=== PATIENT | female | born 1955 | race African-American/Black ===

== ENCOUNTER 2018-05-25 11:01 | Outpatient (CLI) | payer BC | END 2018-05-25 11:02 | disposition home or self-care (01) | LOC: BICMAMMO 11:01 | PROVIDERS: ATTEND Family Medicine | DX: M85.89 Other specified disorders of bone density and structure, multiple sites (principal) | CPT/HCPCS: 77080 ==

== ENCOUNTER 2018-10-26 08:42 | Observation (INO) | payer BC ==
[2018-10-26] MEDS ORDERED: ISOVUE-370 76%-LOCM 1 ML ONE (09:28)
[2018-10-26] MEDS ORDERED: Iopamidol 370 76% 100 ML VIAL ONE (09:31)
[2018-10-26 09:54] LABS: Band 3 % (5-11); Hemoglobin 13.1 g/dL (12.0-16.0); Lymphocytes 38 % (21-51); MDiff Complete? YES; Macrocytosis SLIGHT = 6-15 cells (100X) (0-5/hpf); Mean Corpuscular HGB CONC 31.7 g/dL (32.0-36.0); Mean Corpuscular Hemoglobin 31.8 pg (27.0-31.0); Mean Platelet Volume 10.7 fL (7.4-10.4); Monocytes 4 % (0-10); Neutrophil 55 % (42-75); Platelet Count 117 thou/uL (130-400); Platelet Morphology Comment Appears Decreased; Polychromasia SLIGHT = 2-3 cells (100X) (0-2/hpf); Red Blood Cell (RBC) Count 4.12 mill/uL (4.20-5.40); White Blood Cell (WBC) Count 4.6 thou/uL (4.8-10.8)
[2018-10-26 10:18] LABS: ALT (SGPT) 39 U/L (8-55); AST (SGOT) 43 U/L (5-34); Acetaminophen Less than 6.0 mcg/mL (10.0-30.0); Albumin 4.2 g/dL (3.4-4.8); Alcohol Less than 10 mg/dL (Less than 10); Alkaline Phosphatase 49 U/L (40-150); Anion Gap 13 mmol/L (10-20); BUN (Urea Nitrogen) 14 mg/dL (9.8-20.1); Bilirubin, Total 0.5 mg/dL (0.2-1.2); Calc. Creatinine Clearance 0 mL/min (70-130); Calcium 9.7 mg/dL (7.8-10.44); Carbon Dioxide 24 mmol/L (23-31); Chloride 105 mmol/L (98-107); Estimated GFR-MDRD 63; Globulin 3.6 g/dL (2.4-3.5); Glucose 96 mg/dL (80-115); Lipase 30 U/L (8-78); Potassium 4.7 mmol/L (3.5-5.1); Protein, Total 7.8 g/dL (6.0-8.3); Salicylate Less than 8.0 mg/dL (15.0-30.0); Sodium 137 mmol/L (136-145)
[2018-10-26 10:48] LABS: Bilirubin Negative (Negative); Blood, Urine Negative (Negative); Clarity CLEAR (Clear); Glucose, Urine (Dipstick) Negative (Negative); Leukocyte Negative (Negative); Nitrite Negative (Negative); Protein, Urine (Dipstick) Trace mg/dL (Neg-Trace); Specific Gravity, Urine 1.018 (1.002-1.036)
[2018-10-26 10:58] LABS: Amphetamine Not Detected (NotDetected); Barbiturates Screen Not Detected (NotDetected); Benzodiazepine Screen Not Detected (NotDetected); Cocaine Metabolite Screen Not Detected (NotDetected); Medtox Control Line Valid? VALID (VALID); Medtox Reader # READER 1; Methadone Not Detected (NotDetected); Methamphetamine Not Detected (NotDetected); Opiate Screen Not Detected (NotDetected); Oxycodone Screen Not Detected (NotDetected); Phencyclidine (PCP) Not Detected (NotDetected); THC/Cannabinoid Screen Not Detected (NotDetected); Tricyclic Screen Not Detected (NotDetected)
--- NOTE | 2018-10-26 11:23 | CT ---
CT ANGIOGRAM HEAD AND NECK WITH CONTRAST CT BRAIN WITHOUT CONTRAST: Date: 10/26/18 HISTORY: Sudden onset altered mental status. COMPARISON: None. FINDINGS: CT BRAIN: There are bilateral basal ganglia calcifications. No acute hemorrhage or infarct. No midline shift or mass effect. There are also calcifications along the cerebellum bilaterally. Calvarium is intact. Paranasal sinuses and mastoids are clear. IMPRESSION: 1. No acute intracranial abnormality. 2. Bilateral basal ganglia calcifications, as well as cerebellar calcifications are symmetric. Findi ngs can be seen with Fahr familial brain calcifications. Within the differential is hypoparathyroidis m, chronic vasculitis, and prior chemotherapy. CT ANGIOGRAM HEAD AND NECK WITH CONTRAST: CT angiogram of head and neck performed after the intravenous administration of contrast. 3D renderin g provided. There is a left-sided SVC. Visualized portion of the transverse aorta and pulmonary trunk are normal. Lung apices are clear. Normal cervical spine alignment. Vertebral arteries are codominant. No stenosis, thrombosis, nor aneurysm formation. Both carotid artery origins are patent. There is a common appearance to the aortic arch with a common origin of the brachiocephalic and left common carotid arteries. Internal carotid arteries are patent . No significant narrowing per NASCET criteria. [place] patent. No stenosis, thrombosis, nor aneurysm formation. IMPRESSION: 1. No significant narrowing of the internal carotid arteries per NASCET criteria. 2. Patent [place] without stenosis, thrombosis, nor aneurysm formation. POS: TPC
[2018-10-26] MEDS ORDERED: Ondansetron PF 4 MG/2 ML Vial IVP PRN ×2 (12:03)
[2018-10-26] MEDS ORDERED: Benzonatate 100 MG CAP PO PRN (12:03)
[2018-10-26] MEDS ORDERED: Nitroglycerin 0.4 MG TAB (25 Tab Bottle) SL PRN (12:03)
[2018-10-26] MEDS ORDERED: Bisacodyl 5 MG TAB PO PRN (12:03)
[2018-10-26] MEDS ORDERED: Calcium Carbonate 500 MG ChewTAB PO PRN (12:03)
[2018-10-26] MEDS ORDERED: Diabetic Tussin 200 MG/10 ML UDCUP PO PRN (12:03)
[2018-10-26] MEDS ORDERED: hydrALAZINE 20 MG/ML VIAL SLOW IVP PRN (12:03)
[2018-10-26] MEDS ORDERED: Senokot S 8.6-50 MG TAB PO PRN (12:03)
[2018-10-26] MEDS ORDERED: Acetaminophen 325 MG TAB PO PRN (12:03)
[2018-10-26] MEDS ORDERED: Aspirin Chewable 81 MG TAB ONE (12:55)
[2018-10-26 13:08] LABS: Troponin I Less than 0.010 ng/mL (< 0.028)
--- NOTE | 2018-10-26 13:15 | RAD ---
CHEST ONE VIEW: HISTORY: Dyspnea. COMPARISON: 01/09/2012 FINDINGS: The cardiac device is similar with a left-sided SVC approach. Heart size is enlarged. Mild pulmonary venous congestion. No pneumothorax. Calcific tendinosis, left rotator cuff. IMPRESSION: Cardiomegaly and mild pulmonary vascular congestion. POS: TPC
[2018-10-26 14:00] VITALS: BMI 31.2
[2018-10-26] MEDS ORDERED: Enoxaparin Sodium 40 MG/0.4 ML SYRINGE SC SCH ×2 (14:00→15:30)
--- NOTE | 2018-10-26 14:23 | HP ---
PRIMARY CARE PHYSICIAN: Dr. Francis Mota. PRIMARY DATABASE ARCHITECT: Dr. Lynn. CHIEF COMPLAINT: Dizziness, feeling faint, worsening shortness of breath on exertion as well as some confusion and word-finding difficulty earlier today. HISTORY OF PRESENT ILLNESS: Ms. Gardiner is a very pleasant 63-year-old female with past medical history of atrial fibrillation, status post ablation in 2018 as well as history of myocardial infarction requiring AICD placement in [address] Lynn, who presented to the emergency room with the above-mentioned complaint. History is mainly obtained by the patient herself, and electronic medical records have been reviewed. Case has been discussed with the admitting ER physician. Ms. Gardiner reports that she was at work earlier today and EMS was called by her coworkers because they found out that she was acting confused and was having difficult time finding her words. Upon arrival of the EMS, she was somewhat hypertensive. Blood sugar was 108. No significant neurological deficits were found per the EMS. She was brought to the ER and her blood pressure upon presentation was 140/84 with a pulse of 76. Initially, she was oriented to self and place, but her symptoms resolved completely quickly. She was not found to have any neurological deficits on the ER evaluation. At the time of my examination and history taking, the patient's main concerns are actually feeling faint for the last many weeks. She reports that she has been having worsening shortness of breath especially with exertion. She used to be able to walk around her house, but lately she has not been able to walk from her office to the parking lot. She reports that she had an echocardiogram done by Dr. Lynn about 2 weeks ago and she was told to wear a heart monitor. She has worn heart monitor for 1 week and returned it and has not had the results back. She denies any palpitations. She in general has been feeling very weak and shortness of breath. Denies any chest pain. She has an AICD in place and is on cardiac medication and is compliant with those. Otherwise, she denies any recent illnesses. No fever, chills, or cough. She has mild swelling in both lower extremities. Denies any recent travels. In the emergency room, there was concern of stroke versus TIA, given her history of altered mental status and word-finding difficulty, so a CT angio was done, which was unremarkable for any occlusion. She has bilateral basal ganglia calcification as well as cerebellar calcifications, which are symmetric. She has not received any aspirin at the time of my evaluation. She is being admitted on stroke floor per the emergency room physician for TIA suspicion. According to my evaluation, the patient will also be evaluated for cardiac causes, given her findings of worsening dyspnea on exertion as well as near syncope. PAST MEDICAL HISTORY: 1. Coronary artery disease, status post RI, requiring AICD placement in 2006. 2. History of atrial fibrillation, status post ablation by Dr. Sorenson in 2018. 3. Hypertension. PAST SURGICAL HISTORY: 1. Defibrillator placed in 2017. 2. Cardiac ablation in 2018. PSYCHIATRIC HISTORY: Anxiety. SOCIAL HISTORY: She works at the [employer]. No history of drug, tobacco, or alcohol abuse. FAMILY HISTORY: No significant family history of premature coronary artery disease. ALLERGIES: SULFONAMIDES. CURRENT MEDICATIONS: As listed in the ER records; 1. Aspirin 81 mg daily. 2. Carvedilol 25 mg b.i.d. 3. Pravastatin 10 mg daily. 4. Aldactone 25 mg daily. 5. Vitamin D 3000 units daily. 6. Buspirone 15 mg daily. 7. Myrbetriq daily. 8. Calcium daily. 9. Vitamin B12 daily. 10. Benicar 40 mg daily. REVIEW OF SYSTEMS: A 12-point review of system is done and is negative except for those mentioned in the history and physical. LABORATORY DATA: CBC shows WBCs at 4.6, platelet count of 117, hemoglobin 13.1. Serum chemistries unremarkable. Ammonia level 27. Cardiac enzymes not done so far. Lipase normal. Urinalysis unremarkable. Urine drug screen unremarkable. Chest x-ray not done. A 12-lead EKG by my review shows a few PVCs, otherwise normal sinus rhythm without any axis deviation. PHYSICAL EXAMINATION: VITAL SIGNS: Upon presentation, blood pressure 140/84, pulse of 76, respirations 20, temperature 97.8, saturating 97% on room air. GENERAL: No acute distress. Awake, alert, and oriented x3. HEENT: Mucous membrane is moist and pink. No oropharyngeal exudate or erythema. Head is normocephalic, atraumatic. Pupils are equal, reactive to light and accommodation. Extraocular movement intact. NECK: Supple without any lymphadenopathy, JVD, or bruit. CHEST: Clear to auscultation without any wheezing, rales, or rhonchi. HEART: Rate and rhythm are regular with few ectopic beats on auscultation. ABDOMEN: Soft, nontender, nondistended with positive bowel sounds. EXTREMITIES: Free of any cyanosis, clubbing, or edema. NEUROLOGICAL: Nonfocal. The patient's aunt present at her bedside report that she does appear somewhat slow, but no gross aphasia noticed on my examination. SKIN: Free of any rashes or bruises, feels warm and dry to touch. PSYCHIATRIC: Unremarkable. IMPRESSION AND PLAN: 1. Suspected transient ischemic attack. The patient has AICDs, I am not sure if it is MRI compatible or not. We will get the MRI, it can be done with her type of AICD, and consult Neurology for recommendations regarding the transient expressive aphasia. We will increase her aspirin to 325 for now and give her a dose right now and increase her statin as well. We will obtain a transthoracic echocardiogram as well. CT angio findings will be discussed with Neurology. We will check a lipid profile in the morning as well. 2. Near syncope. The patient has been having the symptoms for a while and given her history of arrhythmia: She will be monitored on telemetry unit. We will try to get the records of her event monitor from Dr. Lynn's office. Echocardiogram has been ordered. We will also check orthostatics. 3. Dyspnea on exertion. The patient has history of coronary artery disease requiring AICD, so suspect ischemic cardiomyopathy. We will check a BNP and obtain a stat chest x-ray to rule out any pulmonary edema. We will also get a D-dimer, given her findings of dizziness and shortness of breath, though the risk factors are minimal. Does not appear to have any evidence to suggest COPD or infection on examination. 4. History of coronary artery disease, status post myocardial infarction and likely ischemic cardiomyopathy, status post AICD placement. We will restart her aspirin, statin, beta-corrina, and VICK inhibitor as above. 5. Hypertension. We will add p.r.n. antihypertensives and allow for permissive hypertension in the setting of possible TIA. 6. Anxiety. Restart her buspirone once the dose is confirmed. 7. History of atrial fibrillation, status post ablation. AICD would be interrogated and we will try to get the printout from recent event monitor. Currently, she is in sinus rhythm. She is not on any anticoagulation by her primary jailer chief. Continue full-dose aspirin for now. 8. Deep venous thrombosis and gastrointestinal prophylaxis. DISPOSITION: Ms. Gardiner is currently being admitted under observation status for further evaluation and rule out TIA. Further management will depend upon her clinical course. Job ID: [id number]
--- NOTE | 2018-10-26 16:32 | CT ---
CT PULMONARY ANGIOGRAM WITH IV CONTRAST AND 3D POST PROCESSING: HISTORY: Shortness of breath and elevated D-dimer. FINDINGS: There is good contrast opacification in the pulmonary vasculature without filling defects to suggest pulmonary embolism. The thoracic aorta is well opacified without aneurysm or dissection. A small pe ricardial effusion is seen. No pleural effusions are identified. No pneumothoraces, focal areas of consolidation, or lung masses are identified. There is a calcified granuloma in the left lower lobe. Mild degenerative changes are present in the spine. IMPRESSION: No CT evidence of pulmonary embolism. POS: OFF
[2018-10-26] MEDS ORDERED: Carvedilol 25 MG TAB PO SCH (17:00)
[2018-10-26] MEDS: Carvedilol 25 MG TAB PO SCH (18:52)
--- NOTE | 2018-10-26 19:02 | ULT ---
BILATERAL LOWER EXTREMITY VENOUS DUPLEX EXAM: 10/26/18 HISTORY: Leg pain and swelling. Real time color doppler evaluation of the right and left lower extremities were performed from groin to calf. This includes evaluation of the common femoral, superficial and profunda femoral, saphenous, popliteal, and posterior tibial veins. This shows patent deep venous systems bilaterally. There is n ormal compressibility and augmentation. There is no evidence of DVT. IMPRESSION: No evidence of DVT of either lower extremity. POS: RAYNA
[2018-10-26] MEDS: Atorvastatin Calcium 40 MG TAB PO SCH (22:25)
[2018-10-27 06:22] LABS: Anion Gap 10 mmol/L (10-20); BUN (Urea Nitrogen) 13 mg/dL (9.8-20.1); Calc. Creatinine Clearance 75 mL/min (70-130); Calcium 9.1 mg/dL (7.8-10.44); Carbon Dioxide 27 mmol/L (23-31); Cardiac Risk 2.5 (Less than 4.5); Chloride 105 mmol/L (98-107); Cholesterol 148 mg/dl (< 200 Desired); Estimated GFR-MDRD 66; Glucose 86 mg/dL (80-115); HDL Cholesterol 59 mg/dL (>60 Neg Risk); Sodium 138 mmol/L (136-145)
[2018-10-27 06:27] LABS: Band 2 % (5-11); Hemoglobin 11.6 g/dL (12.0-16.0); Hypochromia SLIGHT = 6-15 cells (100X) (0-5/hpf); Lymphocytes 54 % (21-51); MDiff Complete? YES; Mean Corpuscular HGB CONC 32.7 g/dL (32.0-36.0); Mean Corpuscular Hemoglobin 32.7 pg (27.0-31.0); Mean Corpuscular Volume 99.9 fL (78.0-98.0); Mean Platelet Volume 10.4 fL (7.4-10.4); Monocytes 3 % (0-10); Neutrophil 40 % (42-75); Platelet Count 107 thou/uL (130-400); Platelet Morphology Comment Appears Decreased; Reactive Lymphocytes 1 % (0-10); Red Blood Cell (RBC) Count 3.54 mill/uL (4.20-5.40); White Blood Cell (WBC) Count 4.4 thou/uL (4.8-10.8)
[2018-10-27 06:32] LABS: LDL Cholesterol, Calculated 80 mg/dL
[2018-10-27 06:37] LABS: Triglycerides 53 mg/dL (Less than 150)
[2018-10-27] MEDS: Enoxaparin Sodium 40 MG/0.4 ML SYRINGE SC SCH (09:27)
[2018-10-27] MEDS: Carvedilol 25 MG TAB PO SCH ×2 (09:28→16:13)
[2018-10-27] MEDS: Aspirin 325 mg Enteric Coated Tablet PO SCH (09:28)
[2018-10-27] MEDS: Spironolactone 25 MG TAB PO SCH (09:28)
[2018-10-27 11:06] LABS: INR-International Normal Ratio 1.1; PTT 39.8 SEC (22.9-36.1)
--- NOTE | 2018-10-27 12:24 | PDOC.PN ---
- Subjective Encounter Start Date: 10/27/18 Encounter Start Time: 12:23 Subjective: feels much better but still easily SOB on ambulation -: no CP.no muscle weakness or speech problems - Objective MAR Reviewed: Yes Vital Signs & Weight: Vital Signs (12 hours) Temp Pulse Resp BP BP BP Pulse Ox 10/27/18 12:00 98.4 F 66 16 103/64 96 10/27/18 07:36 99 F 65 16 131/77 96 10/27/18 04:00 98.9 F 68 18 112/63 96 10/27/18 02:00 97/59 L 10/27/18 00:25 97.6 F 63 16 90/58 L 97 Weight Weight 182 lb I&O: 10/26/18 10/27/18 10/28/18 06:59 06:59 06:59 Intake Total 690 240 Balance 690 240 Result Diagrams: 10/27/18 05:23 10/27/18 05:23 Additional Labs: Laboratory Tests 10/26/18 10/26/18 10/26/18 08:59 08:59 09:15 WBC Hgb Plt Count D-Dimer Greater than 20.00 H Troponin I B-Natriuretic Peptide 232.0 H Triglycerides Cholesterol LDL Cholesterol, Calc HDL Cholesterol Lipase 30 10/26/18 10/26/18 10/27/18 09:15 11:51 05:23 WBC 4.6 L Hgb 13.1 Plt Count 117 L D-Dimer Troponin I Less than 0.010 B-Natriuretic Peptide Triglycerides 53 Cholesterol 148 LDL Cholesterol, Calc 80 HDL Cholesterol 59 Lipase 10/27/18 05:23 WBC 4.4 L Hgb 11.6 L Plt Count 107 L D-Dimer Troponin I B-Natriuretic Peptide Triglycerides Cholesterol LDL Cholesterol, Calc HDL Cholesterol Lipase Phys Exam - Physical Examination Constitutional: NAD HEENT: PERRLA, moist MMs, sclera anicteric, oral pharynx no lesions Neck: no nodes, no JVD, supple, full ROM Respiratory: no wheezing, no rales, no rhonchi, clear to auscultation bilateral Cardiovascular: RRR, no significant murmur Gastrointestinal: soft, non-tender, no distention, positive bowel sounds Musculoskeletal: no edema, pulses present Neurological: non-focal, normal sensation, moves all 4 limbs Psychiatric: normal affect, A&O x 3 Skin: no rash Dx/Plan (1) TIA (transient ischemic attack) Code(s): G45.9 - TRANSIENT CEREBRAL ISCHEMIC ATTACK, UNSPECIFIED Status: Suspected (2) Dyspnea on exertion Code(s): R06.09 - OTHER FORMS OF DYSPNEA Status: Acute (3) Elevated d-dimer Code(s): R79.89 - OTHER SPECIFIED ABNORMAL FINDINGS OF BLOOD CHEMISTRY Status : Acute (4) Thrombocytopenia Code(s): D69.6 - THROMBOCYTOPENIA, UNSPECIFIED Status: Acute (5) Near syncope Status: Acute (6) Paroxysmal atrial fibrillation Code(s): I48.0 - PAROXYSMAL ATRIAL FIBRILLATION Status: Chronic (7) CAD (coronary artery disease) Code(s): I25.10 - ATHSCL HEART DISEASE OF [place] CORONARY ARTERY W/O ANG PCTRS Status: Chronic Comment: on ASA, statin ,BB,aldactone (8) AICD (automatic cardioverter/defibrillator) present Code(s): Z95.810 - PRESENCE OF AUTOMATIC (IMPLANTABLE) CARDIAC DEFIBRILLATOR Status: Chronic - Plan out of bed/ambulate, DVT proph w/SCDs Awaiting neurology recs. cont high dose ASA and statin increased -: Awaiting ECHO.cont home meds meds as below -: OP records requested -: no evidence of Clots even though D Dimer elevated.recommend OP f/u -: Hd stable.may DC later today if ECHO OK and neuro clears * . Review of Systems - Review of Systems Constitutional: weakness. negative: fever, chills, sweats, malaise, other ENT: negative: Ear Pain, Ear Discharge, Nose Pain, Nose Discharge, Nose Congestion, Mouth Pain, Mouth Swelling, Throat Pain, Throat Swelling, Other Respiratory: SOB with Excertion. negative: Cough, Dry, Shortness of Breath, Hemoptysis, Pleuritic Pain, Sputum, Wheezing Cardiovascular: negative: chest pain, palpitations, orthopnea, paroxysmal nocturnal dyspnea, edema, light headedness, other Gastrointestinal: negative: Nausea, Vomiting, Abdominal Pain, Diarrhea, Constipation, Melena, Hematochezia, Other Genitourinary: negative: Dysuria, Frequency, Incontinence, Hematuria, Retention , Other Musculoskeletal: negative: Neck Pain, Shoulder Pain, Arm Pain, Back Pain, Hand Pain, Leg Pain, Foot Pain, Other Neurological: negative: Weakness, Numbness, Incoordination, Change in Speech, Confusion, Seizures, Other - Medications/Allergies Allergies/Adverse Reactions: Allergies Allergy/AdvReac Type Severity Reaction Status Date / Time Sulfa (Sulfonamide Allergy Verified 10/26/18 14:54 Antibiotics) Medications: Current Medications Acetaminophen (Tylenol) 650 mg PO Q4H PRN PRN Reason: Headache/Fever/Mild Pain (1-3) Aspirin (Ecotrin) 325 mg PO DAILY [facility] Last Admin: 10/27/18 09:28 Dose: 325 mg Atorvastatin Calcium (Lipitor) 40 mg PO HS [facility] Last Admin: 10/26/18 22:25 Dose: 40 mg Benzonatate (Tessalon) 100 mg PO Q6H PRN PRN Reason: Cough Bisacodyl (Dulcolax) 10 mg PO DAILYPRN PRN PRN Reason: Constipation Calcium Carbonate (Tums) 1,000 mg PO Q4H PRN PRN Reason: Heartburn or Indigestion [facility] Last Admin: 10/27/18 09:28 Dose: 25 mg Enoxaparin Sodium (Lovenox) 40 mg SC 0900 [facility] Last Admin: 10/27/18 09:27 Dose: 40 mg Guaifenesin (Robitussin Sf) 200 mg PO Q4H PRN PRN Reason: Cough Hydralazine HCl (Apresoline) 10 mg SLOW IVP Q4H PRN PRN Reason: BP > 190/90 Nitroglycerin (Nitrostat) 0.4 mg SL Q5MIN PRN PRN Reason: Chest Pain Ondansetron HCl (Zofran) 4 mg IVP Q6H PRN PRN Reason: Nausea/Vomiting Ondansetron HCl (Zofran) 4 mg IVP Q6H PRN PRN Reason: Nausea/Vomiting Senna/Docusate Sodium (Senokot S) 2 tab PO BID PRN PRN Reason: Constipation Sodium Chloride (Flush - Normal Saline) 10 ml IVF PRN PRN PRN Reason: Saline Flush Spironolactone (Aldactone) 25 mg PO QAM-[facility] Last Admin: 10/27/18 09:28 Dose: 25 mg
[2018-10-27] MEDS: Atorvastatin Calcium 40 MG TAB PO SCH (21:30)
[2018-10-28 07:43] VITALS: BP 140/76; TEMP 97.6
[2018-10-28] MEDS: Aspirin 325 mg Enteric Coated Tablet PO SCH (08:52)
[2018-10-28] MEDS: Carvedilol 25 MG TAB PO SCH (08:52)
[2018-10-28] MEDS: Spironolactone 25 MG TAB PO SCH (08:53)
[2018-10-28] MEDS: Enoxaparin Sodium 40 MG/0.4 ML SYRINGE SC SCH (08:53)
--- NOTE | 2018-10-29 01:25 | DIS ---
DATE OF ADMISSION: 10/26/2018 DATE OF DISCHARGE: 10/28/2018 CONDITION: At the time of discharge, stable and improved. PRIMARY CARE PHYSICIAN: Dr. Francis Mota. PRIMARY AIR OPERATIONS MANAGER: Dr. Lynn. DISCHARGE DIAGNOSES: 1. Transient ischemic attack. 2. Cardiomyopathy, status post AICD placement by Dr. Lynn in the past. 3. Elevated D-dimer. Pulmonary embolism and deep venous thrombosis ruled out. 4. Thrombocytopenia with baseline unknown, mild without any overt or occult bleed. 5. Near syncope. 6. Paroxysmal atrial fibrillation, status post ablation in the past. 7. Coronary artery disease. DISCHARGE MEDICATIONS: 1. Aspirin dose has been increased from 81 to 325 mg daily. 2. Pravastatin dose has been increased from 10 to 40 mg at bedtime. Resume following home medications: 1. Carvedilol 25 mg p.o. b.i.d. 2. Aldactone 25 mg daily. 3. Vitamin D3 daily. 4. Buspirone 50 mg daily. 5. Myrbetriq 25 mg daily. 6. Benicar 40 mg daily. PROCEDURES DONE IN THE HOSPITAL: 1. CT angio of the head and neck in the emergency room, which is negative for any acute intracranial abnormality. She does have bilateral basal ganglia calcification as well as cerebellar calcifications, which are symmetric. 2. CT angio of the thorax, which is negative for any pulmonary embolism. 3. Lower extremity Doppler ultrasound, which is negative for any DVT bilaterally. 4. Transthoracic echocardiogram, which is read by the glost tile sorter as EF of 30% to 35% with mild diastolic dysfunction. IN-HOUSE CONSULTATION: Neurology, Dr. Medrano. HISTORY OF PRESENTING ILLNESS: Ms. Gardiner is a pleasant 63-year-old female with past medical history of coronary artery disease and cardiomyopathy likely ischemic status post AICD placement and history of atrial fibrillation status post ablation in the past, who presented to the emergency room with complaints of dizziness, feeling faint, worsening shortness of breath on exertion and expressive aphasia. Please see admission history and physical for further details. Initial workup in the ER included chest x-ray and CT angio of the head and neck for TIA and CVA workup, which was negative. She was admitted to stroke floor for further workup to rule out CVA. On my evaluation, the patient also had prominent complaints of dyspnea on exertion and near-syncope. She was started to get a workup for that as well. HOSPITAL COURSE: The patient was found to have elevated D-dimer of more than 20, so she underwent a CT angio of the thorax and lower extremity Doppler ultrasound and both were negative for any DVT or PE. Her PT, PTT, and INR were checked and were unremarkable. The patient was asymptomatic otherwise. With regard to her history of dyspnea on exertion, she has known history of ischemic cardiomyopathy and follows up at Dr. Lynn's office. Records were faxed over. Her EF in the last echocardiogram at his office showed EF of 50% to 55%. An echocardiogram done in our facility was read as 30% to 35%. It is not sure if this is a read error or a new finding. I did discuss these findings with Dr. Lynn, who will follow up in his clinic. AICD was interrogated and it did not show any arrhythmias. She had four beats of nonsustained VT in our hospital while she was asleep at night and she was asymptomatic. As of this morning, CVA has been ruled out. She has been seen by Dr. Medrano, who recommended addition of Plavix but the patient was noticed to have low platelet count of 107, so at this time, she is being discharged on increased dose of statin and aspirin. She will further discuss the need for oral anticoagulation and/or Plavix with her glost tile sorter. Once again, I have personally discussed her care with her glost tile sorter, Dr. Lynn, and I have tried to get her as early as an appointment possible. As of this morning, she is hemodynamically stable and asymptomatic. She has had no speech impediment while she was here. PHYSICAL EXAMINATION: VITAL SIGNS: This morning, vital signs, temperature 97.6, pulse of 60, respirations 16, saturating 95% on room air, blood pressure 140/76. GENERAL: No acute distress. Awake, alert, and oriented x3. CHEST: Clear to auscultation bilaterally. HEART: Rate and rhythm regular. LABORATORY DATA: Discharge CBC shows platelet count of 107, hemoglobin 11.6, WBCs 4.6. Serum chemistries, lipid panel, cardiac enzymes unremarkable. Lipase normal. BNP 232. Chest x-ray did not show any significant pulmonary edema. DISCHARGE PLAN: Discharge plan was discussed extensively with the patient and her family members in the room and they verbalized understanding. She needs a close followup with her own glost tile sorter. She will get a repeat D-dimer and CBC done in 2 weeks and will follow up with her PCP with regard to elevated D-dimer and thrombocytopenia. TIME SPENT: Total time spent in the discharge, 36 minutes. Job ID: [id number]
== END 2018-10-28 12:55 | disposition home or self-care (01) ==
LOC: ERS 08:42 → 2SE 13:44
PROVIDERS: ADMIT Internal Medicine; ATTEND Internal Medicine
DX: G45.9 Transient cerebral ischemic attack, unspecified (principal); I42.9 Cardiomyopathy, unspecified; D69.6 Thrombocytopenia, unspecified; I48.0 Paroxysmal atrial fibrillation; I25.10 Atherosclerotic heart disease of native coronary artery without angina pectoris; I10 Essential (primary) hypertension; I25.2 Old myocardial infarction; F41.9 Anxiety disorder, unspecified; Z95.810 Presence of automatic (implantable) cardiac defibrillator; Z88.2 Allergy status to sulfonamides; Z79.82 Long term (current) use of aspirin; Z79.899 Other long term (current) drug therapy; Z98.890 Other specified postprocedural states
CPT/HCPCS: 36415; 36416; 70496; 70498; 71045; 71275; 80048; 80053; 80061; 80306; 80307; 81003; 82140; 83690; 83880; 84484; 85025; 85379; 85610; 85730; 93005; 93306; 93970; 96372; G0378; J1650; Q9966; Q9967

== ENCOUNTER 2019-04-10 08:29 | Emergency (ER) | payer BC ==
[2019-04-10 10:33] LABS: Hemoglobin 12.7 g/dL (12.0-16.0); Mean Corpuscular HGB CONC 32.9 g/dL (32.0-36.0); Mean Corpuscular Hemoglobin 32.3 pg (27.0-31.0); Mean Corpuscular Volume 98.2 fL (78.0-98.0); Red Blood Cell (RBC) Count 3.91 mill/uL (4.20-5.40)
[2019-04-10 10:58] LABS: ALT (SGPT) 53 U/L (8-55); AST (SGOT) 36 U/L (5-34); Alkaline Phosphatase 39 U/L (40-150); Anion Gap 15 mmol/L (10-20); BUN (Urea Nitrogen) 15 mg/dL (9.8-20.1); Bilirubin, Total 0.8 mg/dL (0.2-1.2); Calc. Creatinine Clearance 0 mL/min (70-130); Calcium 9.4 mg/dL (7.8-10.44); Carbon Dioxide 26 mmol/L (23-31); Chloride 105 mmol/L (98-107); Estimated GFR-MDRD 66; Globulin 3.7 g/dL (2.4-3.5); Glucose 90 mg/dL (80-115); Potassium 4.9 mmol/L (3.5-5.1); Protein, Total 7.7 g/dL (6.0-8.3); Sodium 141 mmol/L (136-145)
--- NOTE | 2019-04-10 10:58 | RAD ---
PORTABLE CHEST 1 VIEW: Date: 04/10/19 Time: 0953 hours HISTORY: Chest pain. Left arm pain. FINDINGS: Comparison made with exam of 10/26/18. Left-sided AICD remains in place with a left-sided SVC approach. The heart is enlarged. The aorta is tortuous. The lungs are expanded without lobar consolidation, pneumothoraces, deborah pulmonary edema, or pleural effusions. IMPRESSION: No acute process. POS: MAIAH
--- NOTE | 2019-04-10 10:59 | RAD ---
LEFT SHOULDER 3 VIEWS: Date: 04/10/19 HISTORY: Left shoulder pain. FINDINGS/IMPRESSION: No acute fracture, dislocation, or bony destruction seen. There are degenerative changes in the acrom ioclavicular joint. Calcific densities are seen close to the rotator cuff insertion consistent with c alcific tendinosis. POS: MAIA
[2019-04-10 11:07] LABS: Burr Cells SLIGHT = 2-5 cells (100X) (0-1/hpf); Lymphocytes 29 % (21-51); MDiff Complete? YES; Mean Platelet Volume 11.9 fL (7.4-10.4); Monocytes 5 % (0-10); Neutrophil 62 % (42-75); Platelet Count 93 thou/uL (130-400); Platelet Morphology Comment Appears Decreased; Reactive Lymphocytes 4 % (0-10); White Blood Cell (WBC) Count 6.8 thou/uL (4.8-10.8)
== END 2019-04-10 11:28 | disposition home or self-care (01) ==
LOC: ERS 08:29
DX: M75.32 Calcific tendinitis of left shoulder (principal); I25.2 Old myocardial infarction; I10 Essential (primary) hypertension; F41.9 Anxiety disorder, unspecified; Z79.899 Other long term (current) drug therapy; Z79.82 Long term (current) use of aspirin
CPT/HCPCS: 71045; 80053; 84484; 85025; 93005

== ENCOUNTER 2020-01-02 23:56 | Inpatient (IN) | payer BC ==
[2020-01-03 00:57] LABS: Hemoglobin 12.5 g/dL (12.0-16.0); Mean Corpuscular HGB CONC 31.5 g/dL (32.0-36.0); Mean Corpuscular Hemoglobin 32.4 pg (27.0-31.0); RBC Distribution Width 13.2 % (11.5-14.5); Red Blood Cell (RBC) Count 3.84 mill/uL (4.20-5.40); White Blood Cell (WBC) Count 8.9 thou/uL (4.8-10.8)
[2020-01-03 01:20] LABS: Lymphocytes 77 % (21-51); MDiff Complete? YES; Macrocytosis SLIGHT = 6-15 cells (100X) (0-5/hpf); Mean Platelet Volume 10.2 fL (7.4-10.4); Monocytes 2 % (0-10); Neutrophil 21 % (42-75); Platelet Count 96 thou/uL (130-400); Platelet Morphology Comment Appears Decreased
[2020-01-03] MEDS ORDERED: Calcium Chloride 1 GM/10 ML Abboject SYRINGE ONE ×2 (01:31→10:05)
[2020-01-03 01:48] LABS: INR-International Normal Ratio 1.4; PTT 37.5 SEC (22.9-36.1); Prothrombin Time 16.9 SEC (12.0-14.7)
[2020-01-03 02:03] LABS: ALT (SGPT) 44 U/L (8-55); AST (SGOT) 64 U/L (5-34); Albumin 2.9 g/dL (3.4-4.8); Alkaline Phosphatase 43 U/L (40-110); Anion Gap 18 mmol/L (10-20); BUN (Urea Nitrogen) 30 mg/dL (9.8-20.1); Bilirubin, Total 0.4 mg/dL (0.2-1.2); Calc. Creatinine Clearance 0 mL/min (70-130); Calcium 8.1 mg/dL (7.8-10.44); Carbon Dioxide 18 mmol/L (23-31); Chloride 104 mmol/L (98-107); Estimated GFR-MDRD 33; Globulin 2.3 g/dL (2.4-3.5); Glucose 169 mg/dL (80-115); Magnesium 2.4 mg/dL (1.6-2.6); Potassium 6.2 mmol/L (3.5-5.1); Protein, Total 5.2 g/dL (6.0-8.3); Sodium 134 mmol/L (136-145)
[2020-01-03 02:04] LABS: Acetaminophen Less than 6.0 mcg/mL (10.0-30.0); Alcohol Less than 10 mg/dL (Less than 10); Salicylate Less than 8.0 mg/dL (15.0-30.0)
[2020-01-03] MEDS ORDERED: Norepinephrine 8 MG/0.9% NS 0 ML ONE (02:23)
[2020-01-03] MEDS ORDERED: Norepinephrine 8 MG/0.9% NS 250 ML ONE ×2 (02:23→02:25)
[2020-01-03] MEDS ORDERED: Norepinephrine 8 MG in Dextrose 5% in Water 242 ML IVPB PRN ×2 (02:27→06:50)
[2020-01-03] MEDS ORDERED: Cefepime 2 GM VIAL ONE (02:30)
[2020-01-03] MEDS ORDERED: Vancomycin 1 GM/200 ML BAG ONE (02:30)
[2020-01-03] MEDS ORDERED: Rocuronium Bromide 10 MG/ML (10ML VIAL) ONE (03:14)
[2020-01-03] MEDS ORDERED: Rocuronium Bromide 50 MG/5 ML VIAL ONE (03:15)
[2020-01-03] MEDS ORDERED: fentaNYL Citrate/PF 2,000 MCG in Sodium Chloride 0.9% 60 ML IV SCH (03:31)
[2020-01-03] MEDS ORDERED: Ventilator Sedation Protocol 1 EACH FS ONE (03:43)
[2020-01-03] MEDS ORDERED: Norepinephrine 8 MG/0.9% NS 250 ML IVPB SCH (03:45)
[2020-01-03] MEDS ORDERED: Sodium Chloride 0.9% 1,000 ML IV SCH (03:45)
[2020-01-03] MEDS ORDERED: Propofol 1,000 MG/100 ML VIAL IV PRN (03:48)
[2020-01-03] MEDS ORDERED: DISCONTINUE PREVIOUS NARCOTIC PAIN MEDICATIONS AND BENZODIAZEPINES FS SCH (03:48)
[2020-01-03] MEDS ORDERED: Morphine 2 MG/ML SYRINGE SLOW IVP PRN (03:48)
[2020-01-03] MEDS ORDERED: Lorazepam 2 MG/ML VIAL SLOW IVP PRN (03:48)
[2020-01-03] MEDS ORDERED: Propofol BOLUS 1,000 MG/100 ML VIAL IV PRN (03:48)
[2020-01-03] MEDS ORDERED: Fentanyl BOLUS 250 ML IVPB PRN (03:48)
[2020-01-03] MEDS ORDERED: EPINEPHrine 1 MG, Admixture Fee 1 EACH in Dextrose 5% in Water 250 ML IVPB SCH (04:15)
[2020-01-03 04:24] LABS: Actual Bicarbonate (HCO3a) 12.9 mEq/L (22-28); Analyzer IN Cardio ER; Base Excess (BEa) -18.2 mEq/L (-2.0 to +3.0); CO2 Tension 54.4 mmHg (35.0-45.0); Calcium, Ionized 1.17 mmol/L (1.12-1.30); Carboxyhemoglobin (COHb) 0.2 gm% (0.0-3.0); Hemoglobin (Hb) 11.3 g/dL (12.0-16.0); Potassium - ABG Lab 6.51 mmol/L (3.70-5.30)
[2020-01-03 04:25] LABS: O2 Tension (PaO2) 26.4 mmHg (> 80.0); pH, Arterial 6.99 (7.35-7.45)
[2020-01-03 04:26] LABS: Puncture Site RRA
[2020-01-03] MEDS ORDERED: Sodium Bicarb 50 MEQ/50 ML Abboject 8.4% SYRINGE IVP SCH (05:00)
[2020-01-03 05:09] LABS: Lactic Acid 9.4 mmol/L (0.5-2.2)
[2020-01-03 05:21] LABS: Troponin I Less than 0.010 ng/mL (< 0.028)
--- NOTE | 2020-01-03 05:54 | PDOC.EVN ---
Event Note - Event Note Event Note: [facility] [employer] was called . This was the second CPR and ACLS performed with [facility]. Trial to reach the family but nobody answering Very poor prognosis
[2020-01-03] MEDS ORDERED: Sodium Bicarbonate 50 MEQ in Dextrose 5% in Water 1,000 ML IV SCH (06:00)
--- NOTE | 2020-01-03 06:14 | HP ---
CHIEF COMPLAINT: Abdominal pain. HISTORY OF PRESENT ILLNESS: Ms. Gardiner is a 64-year-old female with past medical history of myocardial infarction, hypertension, atrial fibrillation, defibrillator, among others, presented to the emergency room with abdominal pain. EMS reports the patient was found unresponsive in the bathroom at [place], at that time, patient was awake, alert, oriented, but lethargic and slow to respond. The patient reports abdominal pain that started during the afternoon, associated with nausea and vomiting. The patient has a pacemaker. In the emergency room, the patient was hypothermic, blood pressure was unrecordable, the patient had a potassium of 6.2, creatinine 1.8. The patient became more lethargic and the blood pressure became low. Central venous catheter was inserted by the ER physician. The patient is being intubated at the time of this dictation. No further history can be obtained at this time. PAST MEDICAL HISTORY: As mentioned above in history of present illness. PAST SURGICAL HISTORY: 1. Defibrillator/cardiac pacemaker. 2. Heart ablation. PAST PSYCHIATRIC HISTORY: Unknown. SOCIAL HISTORY: Unable to obtain at this time. REVIEW OF SYSTEMS: Unable to obtain at this time. ALLERGIES: SULFA. HOME MEDICATIONS: Please see home medication reconciliation form for updated medications. PHYSICAL EXAMINATION: GENERAL: The patient is lethargic. VITAL SIGNS: Blood pressure unable to obtain. Pulse is 50, respiratory rate is 20, temperature is 93, oxygen saturation 94%. HEENT: Head, normocephalic. NECK: Supple. CHEST: Fair bilateral air entry. HEART: S1, S2 regular. ABDOMEN: Soft. Diffuse tender. Bowel sounds hypoactive. NEURO: The patient is lethargic, moving extremities. PSYCH: Unable to assess. EXTREMITIES: No clubbing. No cyanosis. LABORATORY DATA: Sodium 134, potassium 6.2, BUN is 30, creatinine 1.8, glucose is 169, AST is 64, ALT is 44. Lactic acid is 8.8. IMAGING DATA: CTA of the chest, abdomen and pelvis was done as per ER physician, no acute finding. ASSESSMENT: 1. Shock, ? septic. 2. Hypothermia. 3. Acute metabolic encephalopathy. 4. Acute kidney injury. 5. Acute abdominal pain, etiology is not clear. Imaging studies unremarkable. 6. History of myocardial infarction. 7. Cardiac pacemaker/defibrillator. PLAN: 1. Admit to CCU. 2. The patient is getting intubated, will continue with ventilator support. 3. Septic workup including blood cultures. 4. Urinalysis and urine cultures. 5. The patient was given IV antibiotics empirically in the ED. 6. Vasopressor titrate to MAP more than 65. 7. Consult Pulmonary/[facility]er for critical care management. 8. Reconcile home medications. 9. DVT prophylaxis as appropriate. 10. GI prophylaxis. 11. Expected length of stay 3 midnights or more. 12. The patient's condition is very critical, prognosis poor. Job ID: [id number]
[2020-01-03 06:50] LABS: Anion Gap 21 mmol/L (10-20); BUN (Urea Nitrogen) 27 mg/dL (9.8-20.1); Calc. Creatinine Clearance 0 mL/min (70-130); Calcium 7.7 mg/dL (7.8-10.44); Carbon Dioxide 14 mmol/L (23-31); Chloride 110 mmol/L (98-107); Estimated GFR-MDRD 30; Glucose 117 mg/dL (80-115); Sodium 138 mmol/L (136-145)
[2020-01-03 06:56] LABS: Potassium 6.8 mmol/L (3.5-5.1); Troponin I 0.012 ng/mL (< 0.028)
[2020-01-03] MEDS ORDERED: EPINEPHrine 4 MG, Admixture Fee 1 EACH in Dextrose 5% in Water 250 ML IVPB SCH (07:45)
--- NOTE | 2020-01-03 07:57 | RAD ---
EXAM: CHEST ONE VIEW HISTORY: Sepsis. Post intubation. COMPARISON: 01/03/2020 FINDINGS: Endotracheal tube is noted in place with the tip overlying the T4 vertebral body and above the level of the kim. Nasogastric tube has also been placed in the interim which courses into the left abdomen. Left subclavian dual lead AICD device is noted in place with the leads seen along the left m ediastinum. Prior CTA chest on 01/03/2020 demonstrated evidence of a duplicated SVC. The heart remains enlarged. Pulmonary vasculature is within normal limits. Lungs remain clear. No other interva l change IMPRESSION: 1. Interval placement of endotracheal tube and nasogastric tube. 2. Cardiomegaly.
--- NOTE | 2020-01-03 08:00 | RAD ---
PORTABLE CHEST 1 VIEW: Date: 01/03/2020 Time: 0117 hours HISTORY: Altered mental status. FINDINGS/IMPRESSION: Comparison made with exam of 04/10/2019. Left-sided AICD remains in place. The heart is enlarged. No pneumothoraces, focal areas of consolidat ion, deborah pulmonary edema, or pleural effusions are seen. POS: MZA
--- NOTE | 2020-01-03 08:18 | CT ---
PRELIMINARY REPORT/[facility]/EMERGENCY AFTER HOURS PROCEDURE: PROCEDURE: CT Head without Contrast . HISTORY: Found on the floor. TECHNIQUE: Axial images were performed without the administration of IV contrast with or without mult iplanar reformations . COMPARISON: None . FINDINGS: Brain shows no mass, hemorrhage, or acute stroke. Moderate bilateral basal ganglia and central cerebellar calcifications. Mild periventricular old shreyas roischemic changes. Mild diffuse cerebral and cerebellar atrophy. Ventricles are normal size for patient's age. No acute skull or scalp abnormality. Visualized sinuses and mastoids are clear. IMPRESSION: No acute intracranial abnormality. Senescent changes . ELECTRONICALLY SIGNED BY: Roberto Peña MD Jan 03, 2020 1:22:38 AM CDT This report is intended for review by the ordering physician only, in accordance of law. If you recei ve this report in error, please call [facility] at [phone]. FINAL REPORT BRAIN CT WITHOUT IV CONTRAST: EMERGENT AFTER HOURS STUDY TIME: 12:48 AM. DATE: 01/03/2020. HISTORY: Altered mental status, found down, lethargy. FINDINGS: No focal mass or midline shift. No intra- or extraaxial hemorrhage. IMPRESSION: Unremarkable noncontrast head CT. No mass or bleed or other acute process. POS: RRE
[2020-01-03] MEDS ORDERED: Famotidine/PF 20 mg/2ml Vial SLOW IVP SCH (09:00)
--- NOTE | 2020-01-03 09:09 | CT ---
PRELIMINARY REPORT/[facility]/EMERGENCY AFTER HOURS PROCEDURE: PROCEDURE: CTA Chest and Abdomen with IV Contrast Material . HISTORY: Found on the floor with lethargy and abdomen pain. TECHNIQUE: Axial images were performed with the administration of iodinated contrast intravenously wi th multiplanar and 3D (maximum intensity projection and surface-shaded) reformations. The patient was not given oral contrast material. COMPARISONS: None . FINDINGS: Normal thoracic aorta with mild tortuosity and no atherosclerosis, aneurysm, or dissection. No evidence of pulmonary embolus. Mediastinum and hilar regions show no masses or lymphadenopathy. LEFT and RIGHT-sided superior vena cava present. Cardiomegaly with no pericardial fluid. Pacemaker leads in the RIGHT heart. No pulmonary consolidation, masses, or pleural fluid. Liver, spleen, adrenals, and pancreas show no significant abnormality. Kidneys show no obstruction o r masses. Normal biliary tract. No abdominal ascites or pneumoperitoneum. Abdominal aorta shows no atherosclerosis, aneurysm, or dissection. Major branches of the abdominal a radha show normal enhancement with no narrowing or occlusion. No lymphadenopathy. Visualized bowel shows no obstruction or dilatation. Appendix is not included on the study. No acute bony abnormality. IMPRESSION: Mild tortuosity aorta with no evidence of aneurysm or dissection. No pulmonary embolus. Cardiomegaly. No other significant abnormality identified. ELECTRONICALLY SIGNED BY: Roberto Peña MD Jan 03, 2020 1:28:32 AM CDT This report is intended for review by the ordering physician only, in accordance of law. If you recei ve this report in error, please call [facility] at [phone]. FINAL REPORT CT ANGIOGRAM CHEST WITH 3D RENDERING CT ANGIOGRAM ABDOMEN WITH 3D RENDERING: EMERGENT AFTER HOURS EXAM TIME: 12:53 AM. DATE: 01/03/2020. HISTORY: Lethargy and abdominal pain. Found down on floor. FINDINGS/IMPRESSION: Atherosclerotic ectatic changes of the aorta, but no evidence for aortic aneurysm or dissection. Kierra tral pulmonary arteries appear to be free of thrombus. Left-sided pacemaker wire is in place. Left- sided superior vena cava with contrast within left hemiazygos system. Left lower pole anterior renal cyst. Small left thyroid nodule up to 1.2 cm. Cardiomegaly. Evidence for pericardial effusion. N o evidence for pleural fluid. No mediastinal mass or adenopathy. Other findings as above. This report is in agreement with the preliminary report. POS: RRE
[2020-01-03] MEDS ORDERED: Iopamidol 370 76% 100 ML VIAL ONE (09:10)
[2020-01-03] MEDS ORDERED: Atropine Sulfate 1 mg/10 ml Syringe ONE (10:02)
[2020-01-03] MEDS ORDERED: EPINEPHrine 1 MG/10 ML Abboject SYRINGE ONE (10:05)
[2020-01-03] MEDS ORDERED: Sodium Bicarb 50 MEQ/50 ML Abboject 8.4% SYRINGE ONE (10:05)
--- NOTE | 2020-01-03 10:10 | CON ---
DATE OF CONSULTATION: HISTORY OF PRESENT ILLNESS: Francia Gardiner is a 64-year-old female who came to the ER, altered mental status, abdominal pain. She in the ER for several hours. Rectal temperature on admission was 93. She is clearly in shock. When she arrived, pulse is 52. I spoke to the ER doctor at length yesterday about 4 o'clock in the morning stating that she in the ER had two episodes of cardiopulmonary arrest. She is already intubated, severe metabolic acidosis. Presenting symptoms besides encephalopathy, vague abdominal pain. She told me the CT of abdomen was unremarkable, no masses or infiltrate seen. Chest x-ray shows cardiomegaly with the AICD in place. Her daughter who is her guardian is here at the bedside. When she arrived to the ICU at 5:30 in the morning, she once again went into shock. She is now on Levophed, epinephrine, and a bicarb drip. Additional information from the daughter. PAST MEDICAL HISTORY: Unknown primary care doctor. Coronary artery disease, myocardial infarction, ablation, defibrillator. ALLERGIES: SULFA. HOME MEDICATIONS: 1. Coreg 25 two a day. 2. Aspirin. 3. Pravastatin. 4. . SOCIAL HISTORY: Alcohol and tobacco none. By reviewing the previous history in the past, none. PHYSICAL EXAMINATION: GENERAL: The pupils are dilated. VITAL SIGNS: Pulse 52, blood pressure 140/80, respiratory rate 20. CHEST: Decreased breath sounds, no wheezing. CARDIAC: Normal S1, S2. ABDOMEN: Soft. EXTREMITIES: Trace edema. LABORATORY DATA: White count 8000, H and H is 12 and 39, platelet count is 96. She has always had thrombocytopenia. PO2 was 26, pCO2 of 54, pH 6.9, 100%. Creatinine is 2, BUN is 27, potassium 6.8. Lactic acid is 9.8. ASSESSMENT: 1. Multiorgan failure, severe metabolic acidosis, probably ischemic bowel. The CT abdomen is negative. 2. Cardiomyopathy. She had prolonged CPR now for several hours. Discussed with the daughter her prognosis is grave. We are trying to make her comfort care at this time. She agrees, waiting for additional family members to arrive. Critical care time encompassing all discussed with several doctors last night and this morning, 45 minutes. Job ID: [id number]
[2020-01-03] MEDS ORDERED: Cefepime 1 GM in Sodium Chloride 0.9% 100 ML IVPB SCH (15:00)
--- NOTE | 2020-01-03 20:29 | DIS ---
DATE OF ADMISSION: 01/03/2020 DATE OF DISCHARGE: 01/03/2020 DATE OF : 01/03/2020 ADMISSION DIAGNOSES: 1. Acute respiratory failure. 2. Sepsis. 3. Abdominal pain. DISCHARGE DIAGNOSES: 1. Septic shock. 2. Repeated cardiac arrest. 3. . HISTORY OF PRESENTING ILLNESS: Ms. Gardiner was a 64-year-old female with a past medical history of myocardial infarction, hypertension, atrial fibrillation, defibrillator, among others, presented to the emergency room after she was found unresponsive in the bathroom at [place]. The patient was complaining of abdominal pain in the afternoon and it was associated with nausea and vomiting. In the emergency room, during the initial evaluation, the patient was hypothermic with un-recordable blood pressure and a serum potassium of 6.2 and a creatinine of 1.8, requiring emergent intubation. The patient was admitted under sepsis protocol to CCU and sepsis workup was initiated and was started on IV antibiotics, IV fluids, vasopressors. Subsequently, through the night, the patient repeatedly had cardiac event requiring CPR due to multiorgan failure, severe metabolic acidosis. After a long discussion with the family, it was decided to withdraw life support. The patient was extubated and within a short period of time, patient . Patient's body was released to the home. Job ID: [id number] [id number]
[2020-01-04] MEDS ORDERED: Vancomycin 1 GM in Premix Bag 1 BAG IVPB SCH (03:00)
== END 2020-01-03 10:40 | disposition expired | DRG 871 ==
LOC: ERS 23:56 → CCU 01-03 05:18
PROVIDERS: ADMIT Internal Medicine; ATTEND Internal Medicine
PROC: 0BH17EZ Insertion of Endotracheal Airway into Trachea, Via Natural or Artificial Opening (ICD-10-PCS; principal; 2020-01-03)
PROC: 5A1935Z Respiratory Ventilation, Less than 24 Consecutive Hours (ICD-10-PCS; 2020-01-03)
PROC: 02HV33Z Insertion of Infusion Device into Superior Vena Cava, Percutaneous Approach (ICD-10-PCS; 2020-01-03)
PROC: 3E033XZ Introduction of Vasopressor into Peripheral Vein, Percutaneous Approach (ICD-10-PCS; 2020-01-03)
PROC: 5A12012 Performance of Cardiac Output, Single, Manual (ICD-10-PCS; 2020-01-03)
DX: A41.9 Sepsis, unspecified organism (principal); R65.21 Severe sepsis with septic shock; J96.00 Acute respiratory failure, unspecified whether with hypoxia or hypercapnia; G93.41 Metabolic encephalopathy; R40.2342 Coma scale, best motor response, flexion withdrawal, at arrival to emergency department; R40.2222 Coma scale, best verbal response, incomprehensible words, at arrival to emergency department; E87.2 Acidosis; K55.9 Vascular disorder of intestine, unspecified; N17.9 Acute kidney failure, unspecified; I42.9 Cardiomyopathy, unspecified; Z66 Do not resuscitate; Z51.5 Encounter for palliative care; I46.9 Cardiac arrest, cause unspecified; I10 Essential (primary) hypertension; T68.XXXA Hypothermia, initial encounter; I48.91 Unspecified atrial fibrillation; R40.2132 Coma scale, eyes open, to sound, at arrival to emergency department; I25.2 Old myocardial infarction; Z88.2 Allergy status to sulfonamides; Z79.82 Long term (current) use of aspirin; Z79.899 Other long term (current) drug therapy; Z95.810 Presence of automatic (implantable) cardiac defibrillator
CPT/HCPCS: 36415; 70450; 71045; 71275; 72191; 74175; 80053; 80307; 82805; 83605; 83735; 84484; 85025; 85610; 85730; 87040; 92950; 93005; J0171; J0461; J0692; J3010; J3370; J3490; J7070; Q9967